=== PATIENT | male | born 1990 | race Caucasian/White ===

== ENCOUNTER 2020-07-23 17:15 | Emergency (ER) | payer SELFPAY ==
[~2020-07-23] VITALS: Ht 172.7 cm; Wt 81.6 kg
[2020-07-23 17:25] VITALS: BP 134/91
--- NOTE | 2020-07-23 17:37 | NUR ---
PT TAKEN TO BED 8.
--- NOTE | 2020-07-23 17:45 | NUR ---
29 Y/O M BIB SELF C/C OF A NEW ONSET OF BILATERAL HANDS AND ABD GOING STIFF WHILE HE WAS AT THE [facility] AROUND 20 MIN AGO. PT DENIES STIFFNESS THIS TIME BUT SAYS HIS HANDS FEEL LIKE THEY'RE TINGLING. PT DENIES HEADACHE, PALPITATIONS, SOB, EDEMA. RADIAL PULSES BILATERAL 2+ BOUNDING, S1 & S2 NOTED. PT IS IN NO ACUTE DISTRESS BUT SKIN WAS CLAMMY AND APPROPRIATE FOR ETHNICITY. PMH: DENIES RX: DENIES NKA
--- NOTE | 2020-07-23 17:49 | NUR ---
ERMD AT BEDSIDE EVALUATING PT
[2020-07-23] MEDS ORDERED: NACL 0.9% 1,000 ML IV ONE (17:55)
[2020-07-23 18:52] LABS: ALBUMIN 4.4 g/dL (3.4-5.0); ANION GAP 15.2 (8-16); CREATININE 1.1 mg/dL (0.6-1.3); MAGNESIUM 1.9 mg/dL (1.8-2.4); PHOSPHORUS 1.5 mg/dL (2.5-4.9); POTASSIUM 3.2 mmol/L (3.5-5.1); TOTAL BILIRUBIN 0.9 mg/dL (0.0-1.0)
--- NOTE | 2020-07-23 19:10 | NUR ---
REPORT GIVEN TO CATHY TYLER. TRANSFER OF CARE AT THIS TIME.
--- NOTE | 2020-07-23 19:10 | NUR ---
REPORT GIVEN TO CATHY CLEMENTE. TRANSFER OF CARE AT THIS TIME.
--- NOTE | 2020-07-23 19:30 | NUR ---
RECEIVED IN BED 8 WITH NO VOICED COMPLAINTS. "I FEEL BETTER". IS AWAKE AND ALERT, RESPIRATIONS REGULAR AND UNLABORED
[2020-07-23 19:36] LABS: BASOPHILS % (AUTO) 0.1 % (0.0-2.0); EOSINOPHILS % (AUTO) 0.2 % (0.0-4.0); HEMATOCRIT 50.9 % (36-52); HEMOGLOBIN 17.4 g/dL (12.0-18.0); LYMPHOCYTES # (AUTO) 1.5 K/uL (2.0-11.5); LYMPHOCYTES % (AUTO) 18.5 % (20.5-51.1); MEAN CORPUSCULAR HEMOGLOBIN 32 pg (27-31); MEAN CORPUSCULAR HGB CONC 34 g/dL (33-37); MEAN CORPUSCULAR VOLUME 92.4 fL (80-94); MONOCYTES # (AUTO) 0.7 K/uL (0.8-1.0); MONOCYTES % (AUTO) 8.4 % (1.7-9.3); NEUTROPHILS # (AUTO) 5.8 K/uL (1.8-7.7); NEUTROPHILS % (AUTO) 72.8 % (42.2-75.2); PLATELET COUNT (AUTO) 181 K/uL (140-450); WHITE BLOOD COUNT (AUTO) 7.9 K/uL (4.8-10.8)
[2020-07-23 20:55] VITALS: BP 120/87
--- NOTE | 2020-07-23 21:04 | NUR ---
Patient discharged with v/s stable. Written and verbal after care instructions given and explained. Patient verbalized understanding. Ambulatory with steady gait. All questions addressed prior to discharge. Advised to follow up with PMD.
--- NOTE | 2020-07-27 10:07 | NUR ---
LATE ENTRY -- NORMAL SALINE INFUSION COMPLETED AT 1940 07/23/20
== END 2020-07-23 20:55 | disposition home or self-care (01) ==
LOC: MED 17:15
DX: M62.89 Other specified disorders of muscle (principal); F12.10 Cannabis abuse, uncomplicated
CPT/HCPCS: 36415; 80053; 83735; 84100; 85025; 96360; 99283; J7030